=== PATIENT | female | born 1960 | race Caucasian/White ===

== ENCOUNTER → 2020-07-04 | Outpatient (CLI) | payer OTHER ==
[~2020-07-04] MED LIST: ACHD5005 PO; IBUP-1773 PO
--- NOTE | 2020-07-04 17:22 | Diagnostic Imaging Report ---
INDICATION: History of right-sided rib fracture, follow-up. AP, and oblique views of the right ribs are obtained. There is no underlying pneumothorax or pleural fluid. There is no previous studies for comparison. There appear to be fractures of the 6th and 7th ribs with minimal displacement. There is also a fracture of the 4th rib. IMPRESSION: Multiple right-sided rib fractures as described above. No underlying pneumothorax or pleural fluid. Dictated by: Dictated on workstation # [id number]
== END ==
LOC: RAD FS 15:01
PROVIDERS: ATTEND Family Medicine
DX: S22.31XD Fracture of one rib, right side, subsequent encounter for fracture with routine healing (principal)
CPT/HCPCS: 71100

== ENCOUNTER → 2020-08-10 | Outpatient (CLI) | payer OTHER ==
[~2020-08-10] MED LIST changes: +GADOBUTROL 10 MMOL/10 ML (GADAVIST) VIAL IV ONE
--- NOTE | 2020-08-10 13:27 | Diagnostic Imaging Report ---
EXAMINATION: MRI of the abdomen with and without contrast. TECHNIQUE: Multiplanar, multisequence MR images of the abdomen were obtained with and without intravenous contrast. HISTORY: Liver mass evaluation COMPARISON: None available. FINDINGS: Liver: The liver is normal in signal and smooth in contour. There are two masses within hepatic segments 6/7 which are intrinsically T2 hyperintense and T1 hypointense with restricted diffusion. The larger lesion measures 7.0 cm, and the smaller adjacent lesion more superiorly measures 3.1 cm. Postcontrast images demonstrate peripheral discontinuous nodular enhancement on arterial phase followed by progressive filling on delayed images. The portal and hepatic veins are patent. Gallbladder and Bile Ducts: There is no intrahepatic or extrahepatic bile duct dilation. There are no filling defects in the gallbladder or common bile duct. Pancreas: The pancreas is normal in volume, signal intensity and enhancement. There is no dilation of the main pancreatic duct. Kidneys: There is no hydronephrosis. Adrenal glands: There is a 2.7 cm nodule within the left adrenal gland which demonstrates significant loss of signal on [id number] images compatible with an adrenal adenoma. The right adrenal gland is unremarkable. Spleen: The spleen is normal in size without focal lesion. Lymph Nodes: There is no suspicious lymphadenopathy. Other: There is no ascites. IMPRESSION: 1. Two lesions within the right hepatic lobe measuring up to 7.0 cm with imaging characteristics compatible with hemangiomas. 2. A 2.7 cm left adrenal gland nodule with imaging characteristics compatible with an adenoma. Dictated by: Dictated on workstation # [id number]
== END ==
LOC: RAD 10:15
PROVIDERS: ATTEND Family Medicine
DX: K76.9 Liver disease, unspecified (principal); R16.0 Hepatomegaly, not elsewhere classified; E27.9 Disorder of adrenal gland, unspecified
CPT/HCPCS: 74183